=== PATIENT | female | born 1985 | race Caucasian/White ===

== ENCOUNTER 2018-06-12 16:22 | Emergency (ER) | payer OTHER ==
[2018-06-12 16:37] VITALS: BP 114/67
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
== END 2018-06-12 17:59 | disposition home or self-care (01) ==
LOC: ER 16:22
DX: S16.1XXA Strain of muscle, fascia and tendon at neck level, initial encounter (principal); R51 Headache; M54.2 Cervicalgia; V49.40XA Driver injured in collision with unspecified motor vehicles in traffic accident, initial encounter; M62.838 Other muscle spasm; M62.830 Muscle spasm of back; Z91.013 Allergy to seafood
CPT/HCPCS: 99283

== ENCOUNTER 2020-02-13 10:10 | Observation (INO) | payer OTHER ==
[~2020-02-13 10:10] MED LIST: GLYCOPYRROLATE 1 MG/5 ML VIAL ONE; NEOSTIGMINE METHYLSULFATE 10 MG/10 ML VIAL ONE; SUCCINYLCHOLINE CHLORIDE INJ 200 MG/10 ML VIAL ONE; VECURONIUM BROMIDE INJ 10 MG VIAL IV ONE
[2020-02-13] MEDS ORDERED: NORMAL SALINE 1000 ML 1,000 ML IV ONE (10:29)
--- NOTE | 2020-02-13 10:31 | ER Document Report ---
ED Medical Screen (RME) - General Chief Complaint: Abdominal Pain Stated Complaint: ABDOMINAL PAIN Time Seen by Provider: 02/13/20 10:24 Primary Care Provider: ANANYA JOSUE MD [Primary Care Provider] - Follow up as needed Mode of Arrival: Ambulatory Information source: Patient Notes: Patient presents complaining of abdominal pain that started yesterday evening. Patient states tenderness initially started to the periumbilical area and then migrated to the right lower quadrant. Patient reports nausea without any vomiting or diarrhea. Patient denies any fever or urinary symptoms. Patient denies any vaginal bleeding or discharge. I have greeted and performed a rapid initial assessment of this patient. A comprehensive ED assessment and evaluation of the patient, analysis of test results and completion of the medical decision making process will be conducted by additional ED providers. TRAVEL OUTSIDE OF THE [place] IN LAST 30 DAYS: No - Related Data Allergies/Adverse Reactions: Shellfish * [Shellfish] Allergy (Severe, Verified 10/20/15 19:45) Past Medical History Renal/ Medical History: Denies: Hx Peritoneal Dialysis Past Surgical History: Reports: Hx Section - Immunizations Hx Diphtheria, Pertussis, Tetanus Vaccination: Yes Physical Exam - Vital signs Vitals: Temp Pulse Resp BP Pulse Ox 98.9 F 112 H 18 105/63 100 02/13/20 10:02/13/20 10:02/13/20 10:02/13/20 10:02/13/20 10:23 - General General appearance: Alert In distress: Mild Notes: Tachycardic, tenderness to right lower quadrant, exam limited by patient evaluation in chair Course - Vital Signs Vital signs: Temp Pulse Resp BP Pulse Ox 98.9 F 112 H 18 105/63 100 02/13/20 10:23 02/13/20 10:02/13/20 10:02/13/20 10:02/13/20 10:23 Doctor's Discharge - Discharge Referrals: ANANYA JOSUE MD [Primary Care Provider] - Follow up as needed
[2020-02-13 11:09] LABS: ABSOLUTE EOSINOPHILS # (AUTO) 0.1 10^3/uL (0.0-0.6); ABSOLUTE LYMPHOCYTES (AUTO) 1.4 10^3/uL (0.5-4.7); ABSOLUTE MONOCYTES (AUTO) 0.8 10^3/uL (0.1-1.4); ABSOLUTE NEUT (AUTO) 11.8 10^3/uL (1.7-8.2); BASOPHILS % (AUTO) 0.2 % (0-2); EOSINOPHILS % (AUTO) 0.4 % (0-6); HEMATOCRIT 39.5 % (36.0-47.0); HEMOGLOBIN 13.4 g/dL (12.0-15.5); LYMPHOCYTES % (AUTO) 10.1 % (13-45); MEAN CORPUSCULAR HEMOGLOBIN 29.5 pg (27.0-33.4); MEAN CORPUSCULAR HGB CONC 33.8 g/dL (32.0-36.0); MEAN CORPUSCULAR VOLUME 87 fl (80-97); MONOCYTES % (AUTO) 5.9 % (3-13); PLATELET COUNT 216 10^3/uL (150-450); RED BLOOD COUNT 4.52 10^6/uL (3.72-5.28); RED CELL DISTRIBUTION WIDTH 14.3 % (11.5-14.0); SEGMENTED NEUTROPHILS % (AUTO) 83.4 % (42-78); TOTAL CELLS COUNTED % (AUTO) 100 %; WHITE BLOOD COUNT 14.1 10^3/uL (4.0-10.5)
[2020-02-13 11:23] LABS: APPEARANCE,URINE SLIGHTLY-CLOUDY; BILIRUBIN,URINE NEGATIVE (NEGATIVE); COLOR,URINE YELLOW; GLUCOSE, URINE NEGATIVE (NEGATIVE); KETONES,URINE NEGATIVE (NEGATIVE); LEUKOCYTE ESTERASE,URINE NEGATIVE (NEGATIVE); NITRITE,URINE NEGATIVE (NEGATIVE); PROTEIN,URINE NEGATIVE (NEGATIVE); URINE SPECIFIC GRAVITY 1.014; UROBILINOGEN,URINE NEGATIVE mg/dL (<2.0)
[2020-02-13 11:31] LABS: ALBUMIN 4.2 g/dL (3.5-5.0); ALKALINE PHOSPHATASE 50 U/L (38-126); ANION GAP 7 (5-19); ASPARTATE AMINO TRANSFERASE 20 U/L (14-36); BILIRUBIN,TOTAL 0.7 mg/dL (0.2-1.3); BLOOD UREA NITROGEN 14 mg/dL (7-20); CARBON DIOXIDE 26 mmol/L (22-30); CHLORIDE 103 mmol/L (98-107); GLUCOSE 103 mg/dL (75-110); POTASSIUM 3.9 mmol/L (3.6-5.0); TOTAL PROTEIN 7.5 g/dL (6.3-8.2)
--- NOTE | 2020-02-13 11:34 | RADIOLOGY REPORT (SQ) ---
EXAM DESCRIPTION: U/S NON OB PEL TV W/DOPPLER IMAGES COMPLETED DATE/TIME: 02/13/2020 11:18 am REASON FOR STUDY: RLQ pain COMPARISON: None. TECHNIQUE: Dynamic and static grayscale images acquired of the pelvis via transvaginal approach and recorded on PACS. Additional selected color Doppler and spectral images recorded. LIMITATIONS: None. FINDINGS: UTERUS: Contour normal. No mass. ENDOMETRIAL STRIPE: No focal or generalized thickening. No masses. CERVIX: Nabothian cysts. RIGHT OVARY AND DOPPLER: Normal size. No worrisome masses. Normal arterial vascular flow without evid ence for torsion. LEFT OVARY AND DOPPLER: Normal size. No worrisome masses. Normal arterial vascular flow without evide nce for torsion. FREE FLUID: None noted. OTHER: No other significant finding. MEASUREMENTS: UTERUS: 5.2 x 5.7 x 10.1 cm. ENDOMETRIAL STRIPE: 8 mm. RIGHT OVARY: 1.5 x 2.1 x 2.5 cm. LEFT OVARY: 1.8 x 1.8 x 2.7 cm. IMPRESSION: NORMAL TRANSVAGINAL PELVIC ULTRASOUND. TECHNICAL DOCUMENTATION: JOB ID: [id number] [employer]- All Rights Reserved Rev Reading location - IP/workstation name: [email or web address]
[2020-02-13] MEDS ORDERED: ONDANSETRON HCL INJ/PF 4 MG/2 ML SDV IV ONE (12:37)
[2020-02-13] MEDS ORDERED: MORPHINE SULFATE 10 MG/ML INJ IV ONE ×2 (12:37→15:01)
[2020-02-13 12:40] LABS: CHLAM PCR NOT DETECTED (NOT DETECT)
--- NOTE | 2020-02-13 12:51 | RADIOLOGY REPORT (SQ) ---
EXAM DESCRIPTION: CT ABD/PELVIS WITH IV ONLY IMAGES COMPLETED DATE/TIME: 02/13/2020 12:24 pm REASON FOR STUDY: rlq pain COMPARISON: None. TECHNIQUE: CT scan of the abdomen and pelvis performed using helical scanning technique with dynamic intravenous contrast injection. No oral contrast. Images reviewed with lung, soft tissue, and bone windows. Reconstructed coronal and sagittal MPR images reviewed. Delayed images for evaluation of the urinary system also acquired. All images stored on PACS. All CT scanners at this facility use dose modulation, iterative reconstruction, and/or weight based d osing when appropriate to reduce radiation dose to as low as reasonably achievable (ALARA). [facility]: Dose Right [facility]: CareDose [facility]: Dose Right [facility]: Teradose 4D [facility]: TeraFirrma CONTRAST TYPE AND DOSE: contrast/concentration: Isovue 350.00 mmol/ml; Total Contrast Delivered: 88. 0 ml; Total Saline Delivered: 40.6 ml RENAL FUNCTION: BUN 14 creatinine 0.71. RADIATION DOSE: CT Rad equipment meets quality standard of care and radiation dose reduction techniq ues were employed. CTDIvol: 12.0 - 15.9 mGy. DLP: 1544 mGy-cm.. LIMITATIONS: None. FINDINGS: LOWER CHEST: No significant findings. No nodules or infiltrates. LIVER: Normal size. No masses. No dilated ducts. SPLEEN: Normal size. No focal lesions. PANCREAS: No masses. No significant calcifications. No adjacent inflammation or peripancreatic fluid collections. Pancreatic duct not dilated. GALLBLADDER: No identified stones by CT criteria. No inflammatory changes to suggest cholecystitis. ADRENAL GLANDS: No significant masses or asymmetry. RIGHT KIDNEY AND URETER: 1 cm cortical cyst. No solid masses. No significant calcifications. No hydronephrosis or hydroureter. LEFT KIDNEY AND URETER: Parapelvic cysts. No solid masses. No significant calcifications. No hyd ronephrosis or hydroureter. AORTA AND VESSELS: No aneurysm. No dissection. Renal arteries, SMA, celiac without stenosis. RETROPERITONEUM: No retroperitoneal adenopathy, hemorrhage or masses. BOWEL AND PERITONEAL CAVITY: No masses or inflammatory changes. No free fluid or peritoneal masses. APPENDIX: The appendix has transverse diameter 8.0 mm. There is mild thickening of the wall of the a ppendix and slightly indistinct appearance of the serosal surface. Best visualized on coronal series 601, image 24. PELVIS: No mass. No free fluid. Normal bladder. ABDOMINAL WALL: No masses. No hernias. BONES: No significant or acute findings. OTHER: No other significant finding. IMPRESSION: 1. MILD THICKENING OF THE WALL OF THE APPENDIX WITH POSSIBLE MILD INFLAMMATION, SOMEWHAT SUSPICIOUS F OR EARLY ACUTE APPENDICITIS. 2. NO OTHER SIGNIFICANT OR ACUTE FINDING IN THE ABDOMEN OR PELVIS ON CT SCAN WITH IV CONTRAST. INCID ENTAL RENAL CYSTS. TECHNICAL DOCUMENTATION: JOB ID: [id number] Quality ID # [id number]: Final reports with documentation of one or more dose reduction techniques (e.g., Au tomated exposure control, adjustment of the mA and/or kV according to patient size, use of iterative reconstruction technique) 2010 [employer]- All Rights Reserved Reading location - IP/workstation name: [email or web address]
--- NOTE | 2020-02-13 13:47 | ER Document Report ---
ED General - General Chief Complaint: Abdominal Pain Stated Complaint: ABDOMINAL PAIN Time Seen by Provider: 02/13/20 10:24 Primary Care Provider: ANANYA JOSUE MD [Primary Care Provider] - Follow up as needed Mode of Arrival: Ambulatory Information source: Patient TRAVEL OUTSIDE OF THE [place] IN LAST 30 DAYS: No - HPI Notes: Patient presents with right lower quadrant pain. She states it started out as epigastric pain yesterday and migrated down to the right lower quadrant today. She states it now radiates around to the right side. It is moderate to severe. Is constant. Is worse with movement and better with rest. It is a sharp pain. She denies any dysuria urgency or frequency. No vaginal bleeding or discharge. She has some nausea but no vomiting. No diarrhea or fevers. She denies history of similar pain. - Related Data Allergies/Adverse Reactions: Shellfish * [Shellfish] Allergy (Severe, Verified 10/20/15 19:45) Past Medical History - General Information source: Patient - Social History Smoking Status: Never Smoker Frequency of alcohol use: None Drug Abuse: None Family History: Reviewed & Not Pertinent Renal/ Medical History: Denies: Hx Peritoneal Dialysis Past Surgical History: Reports: Hx Section - Immunizations Hx Diphtheria, Pertussis, Tetanus Vaccination: Yes Review of Systems - Review of Systems Constitutional: denies: Chills, Fever Cardiovascular: denies: Chest pain, Palpitations Respiratory: denies: Cough, Short of breath -: Yes All other systems reviewed and negative Physical Exam - Vital signs Vitals: Temp Pulse Resp BP Pulse Ox 98.9 F 112 H 18 105/63 100 02/13/20 10:23 02/13/20 10:23 02/13/20 10:23 02/13/20 10:23 02/13/20 10:23 Interpretation: Tachycardic - General General appearance: Appears well, Alert - HEENT Head: Normocephalic, Atraumatic Eyes: Normal Pupils: PERRL - Respiratory Respiratory status: No respiratory distress Chest status: Nontender Breath sounds: Normal Chest palpation: Normal - Cardiovascular Rhythm: Tachycardia Heart sounds: Normal auscultation Murmur: No - Abdominal Inspection: Normal Distension: No distension Bowel sounds: Normal Tenderness: Tender - Right lower quadrant. No rebound some mild voluntary guarding Organomegaly: No organomegaly - Back Back: Normal, Nontender - Extremities General upper extremity: Normal inspection, Nontender, Normal color, Normal ROM, Normal temperature General lower extremity: Normal inspection, Nontender, Normal color, Normal ROM, Normal temperature, Normal weight bearing. No: Latesha's sign - Neurological Neuro grossly intact: Yes Cognition: Normal Orientation: AAOx4 Phi Coma Scale Eye Opening: Spontaneous Phi Coma Scale Verbal: Oriented [place] Coma Scale Motor: Obeys Commands [place] Coma Scale Total: 15 Speech: Normal Motor strength normal: LUE, RUE, LLE, RLE Sensory: Normal - Psychological Associated symptoms: Normal affect, Normal mood - Skin Skin Temperature: Warm Skin Moisture: Dry Skin Color: Normal Course - Re-evaluation Re-evalutation: 02/13/20 13:46 Patient presents with right lower quadrant abdominal pain. She has an elevated white blood cell count. Exam shows some moderate tenderness to palpation. CT scan shows questionable early appendicitis. The surgeon has been consulted at this time. - Vital Signs Vital signs: Temp Pulse Resp BP Pulse Ox 98.9 F 112 H 18 105/63 100 02/13/20 10:23 02/13/20 10:23 02/13/20 10:23 02/13/20 10:23 02/13/20 10:23 - Laboratory Result Diagrams: 02/13/20 10:33 02/13/20 10:33 Laboratory results interpreted by me: 02/13/20 02/13/20 02/13/20 10:33 10:33 10:33 WBC 14.1 H RDW 14.3 H Lymph % (Auto) 10.1 L Absolute Neuts (auto) 11.8 H Seg Neutrophils % 83.4 H Sodium 135.6 L Urine Blood SMALL H - Diagnostic Test Radiology reviewed: Image reviewed, Reports reviewed Discharge - Discharge Clinical Impression: Acute appendicitis Qualifiers: Acute appendicitis type: with localized peritonitis Appendicitis gangrene presence: without gangrene Appendicitis perforation presence: without perforation Appendicitis abscess presence: without abscess Qualified Code(s): K35.30 - Acute appendicitis with localized peritonitis, without perforation or gangrene Condition: Stable Disposition: ADMITTED INPATIENT Admitting Provider: Surgicalist Unit Admitted: Surgical Floor Referrals: ANANYA JOSUE MD [Primary Care Provider] - Follow up as needed
[2020-02-13] MEDS ORDERED: PIPERACILLIN/TAZOBACTAM 3.375 GM VIAL IV ONE (14:11)
--- NOTE | 2020-02-13 14:13 | PDOC H&P ---
History of Present Illness Admission Date/PCP: ANANYA JOSUE MD Patient complains of: Right lower quadrant pains History of Present Illness: CHINA CAMPBELL is a 34 year old female who suddenly complained of epigastric pains around 1030 last night after dinner. The pains then localized in the right lower quadrant later that night. Went to ED this morning and CT scan showed acute appendicitis. She had some chills but no fever. She had some nausea last night. Past Medical History Hematology: Denies: Anemia Past Surgical History Past Surgical History: Reports: Section Social History Smoking Status: Current Every Day Smoker Family History Family History: Reviewed & Not Pertinent Parental Family History Reviewed: Yes - Father diabetic Children Family History Reviewed: No Sibling(s) Family History Reviewed.: No Medication/Allergy Home Medications: Methocarbamol [Robaxin 500 Mg Tablet] 500 mg PO QID PRN #40 tablet 05/02/14 Oxycodone HCl/Acetaminophen [Percocet 5-325 mg Tablet] 1 - 2 tab PO ASDIR PRN #15 tablet 05/02/14 Ibuprofen [Motrin 800 mg Tablet] 800 mg PO Q8H PRN #30 tab 06/12/18 Methocarbamol [Robaxin 750 mg Tablet] 750 mg PO ASDIR PRN #20 tablet 06/12/18 Allergies/Adverse Reactions: Shellfish * [Shellfish] Allergy (Severe, Verified 10/20/15 19:45) Review of Systems Constitutional: PRESENT: as per HPI Gastrointestinal: PRESENT: abdominal pain, nausea Physical Exam Vital Signs: Temp Pulse Resp BP Pulse Ox 98.9 F 112 H 18 105/63 100 02/13/20 10:23 02/13/20 10:23 02/13/20 10:23 02/13/20 10:23 02/13/20 10:23 Intake & Output 02/12/20 02/13/20 02/14/20 06:59 06:59 06:59 Intake Total 1000 Balance 1000 Weight 77 kg Exam: There is tenderness and rebound in the right lower quadrant. Pulses: PRESENT: normal radial pulses Vascular exam: PRESENT: normal capillary refill GI/Abdominal exam: PRESENT: tenderness - Right lower quadrant Rectal exam: PRESENT: deferred Neurological exam: PRESENT: alert, oriented to person, oriented to place, oriented to time, oriented to situation Psychiatric exam: PRESENT: appropriate affect Skin exam: PRESENT: normal color, warm Results Laboratory Results: 02/13/20 10:33 02/13/20 10:33 02/13/20 02/13/20 02/13/20 10:33 10:33 10:33 WBC 14.1 H RBC 4.52 Hgb 13.4 Hct 39.5 MCV 87 MCH 29.5 MCHC 33.8 RDW 14.3 H Plt Count 216 Seg Neutrophils % 83.4 H Sodium 135.6 L Potassium 3.9 Chloride 103 Carbon Dioxide 26 Anion Gap 7 BUN 14 Creatinine 0.71 Est GFR ( Amer) > 60 Glucose 103 Calcium 9.0 Total Bilirubin 0.7 AST 20 Alkaline Phosphatase 50 Total Protein 7.5 Albumin 4.2 Serum HCG, Qual NEGATIVE Urine Color Urine Appearance Urine pH Ur Specific [place] Urine Protein Urine Glucose (UA) Urine Ketones Urine Blood Urine Nitrite Ur Leukocyte Esterase Urine WBC (Auto) Urine RBC (Auto) 02/13/20 10:33 WBC RBC Hgb Hct MCV MCH MCHC RDW Plt Count Seg Neutrophils % Sodium Potassium Chloride Carbon Dioxide Anion Gap BUN Creatinine Est GFR ( Amer) Glucose Calcium Total Bilirubin AST Alkaline Phosphatase Total Protein Albumin Serum HCG, Qual Urine Color YELLOW Urine Appearance SLIGHTLY-CLOUDY Urine pH 6.0 Ur Specific [place] 1.014 Urine Protein NEGATIVE Urine Glucose (UA) NEGATIVE Urine Ketones NEGATIVE Urine Blood SMALL H Urine Nitrite NEGATIVE Ur Leukocyte Esterase NEGATIVE Urine WBC (Auto) 3 Urine RBC (Auto) 0 Impressions: Transvaginal US 02/13/20 10:30 IMPRESSION: NORMAL TRANSVAGINAL PELVIC ULTRASOUND. Abdomen/Pelvis CT 02/13/20 11:49 IMPRESSION: 1. MILD THICKENING OF THE WALL OF THE APPENDIX WITH POSSIBLE MILD INFLAMMATION, SOMEWHAT SUSPICIOUS FOR EARLY ACUTE APPENDICITIS. 2. NO OTHER SIGNIFICANT OR ACUTE FINDING IN THE ABDOMEN OR PELVIS ON CT SCAN WITH IV CONTRAST. INCIDENTAL RENAL CYSTS. Assessment & Plan - Diagnosis (1) Acute appendicitis Qualifiers: Acute appendicitis type: with localized peritonitis Appendicitis gangrene presence: without gangrene Appendicitis perforation presence: without perforation Appendicitis abscess presence: without abscess Qualified Code(s): K35.30 - Acute appendicitis with localized peritonitis, without perforation or gangrene Is this a current diagnosis for this admission?: Yes - Time Time Spent: 30 to 50 Minutes - Inpatient Certification Medical Necessity: Need For IV Fluids, Need for Pain Control, Need for IV Antibiotics, Need for Surgery - Plan Summary Plan Summary: 33-year-old female with abdominal pain since 1030 last night associated with nausea. CT scan of the abdomen this morning in the ED showed acute appendicitis. Her white count is elevated. Admits to having chills but no fever. Plans: Hydrate IV antibiotics 2 OR after call Covid testing for laparoscopic appendectomy
[2020-02-13] MEDS ORDERED: SUGAMMADEX SODIUM 200 MG/2 ML SDV IV ONE (16:40)
[2020-02-13] MEDS ORDERED: MIDAZOLAM 2 MG/2 ML INJ ONE (16:40)
[2020-02-13] MEDS ORDERED: ONDANSETRON HCL INJ/PF 4 MG/2 ML SDV ONE (16:40)
[2020-02-13] MEDS ORDERED: FENTANYL CITRATE INJ/PF 100 MCG/2 ML AMPUL ONE (16:40)
[2020-02-13] MEDS ORDERED: PROPOFOL INJ 200 MG/20 ML VIAL IV ONE (16:41)
[2020-02-13] MEDS ORDERED: LIDOCAINE 0.5% INJ-PF (5 MG/ML) 50 ML SDV ONE (16:42)
[2020-02-13] MEDS ORDERED: BUPIVACAINE HCL 0.25 % INJ/PF (2.5 MG/1 ML) 30 ML VIAL ONE (16:45)
[2020-02-13] MEDS ORDERED: DIPHENHYDRAMINE HCL 50 MG/ML VIAL IV PRN (18:05)
[2020-02-13] MEDS ORDERED: MORPHINE SULFATE 10 MG/ML INJ IV PRN (18:05)
[2020-02-13] MEDS ORDERED: FENTANYL CITRATE INJ/PF 100 MCG/2 ML AMPUL IV PRN ×3 (18:05)
[2020-02-13] MEDS ORDERED: MEPERIDINE HCL/PF INJ 25 MG/1 ML DISP.SYRIN IV PRN (18:05)
[2020-02-13] MEDS ORDERED: ONDANSETRON HCL INJ/PF 4 MG/2 ML SDV IV PRN ×2 (18:05→18:30)
[2020-02-13] MEDS ORDERED: PROMETHAZINE HCL INJ 25 MG/1 ML VIAL IV PRN ×2 (18:05)
--- NOTE | 2020-02-13 18:28 | Operative Report ---
Operative Report DATE OF SURGERY: 02/13/20 PREOPERATIVE DIAGNOSIS: Acute appendicitis POSTOPERATIVE DIAGNOSIS: Same OPERATION: Laparoscopic appendectomy SURGEON: DIANA LIANG ANESTHESIA: GA TISSUE REMOVED OR ALTERED: Appendix COMPLICATIONS: None ESTIMATED BLOOD LOSS: 10 cc QUANTITATIVE BLOOD LOSS: 10 INTRAOPERATIVE FINDINGS: Acute appendicitis PROCEDURE: After adequate general anesthesia patient was placed in supine position and the abdomen prepped and draped in the usual sterile fashion. Appropriate timeout was then called. Neck and infraumbilical incision was made fascia identified grabbed with 2 [place] clamps and divided between the 2 Corker clamps. Fascia was then deepened and widened with the use of a hemostat. 2 sutures of 0 Vicryl placed on each side of the fascia and the 2 clamps released. Has finger palpation through the fascia to the abdominal cavity was done and no definite evidence of adhesions underneath. Galeas trocar was then inserted through the fascia to the abdominal cavity and CO2 insufflated. 2 other trochars were placed a 5 mm in the suprapubic and 12 mm in the left lower quadrant under direct vision. The appendix was then identified and grabbed with grasper at the mid part. The mesial appendix was then serially cauterized and divided with the use of harmonic vik. The base of the appendix was clean and free of any inflammation. With the use of Endo EMILE 35mm vascular load base of the appendix close to the cecum was then stapled and divided. Appendix was then placed in an Endobag and pulled out through the umbilical port. Galeas trocar was inserted back and operative site inspected. No evidence of active bleeding noted. This was irrigated with saline solution and no further evidence of active bleeding noted. Pelvic area was inspected and ovaries uterus noted to be normal. All the trochars were then removed and CO2 allowed to come out of the trocar sites. Fascial defect was then closed with [id number] suture using 0 Vicryl and 2 stay sutures were tied for better closure. Local anesthesia infiltrated in the fashion all the skin incision sites. Skin incisions were then closed with running subcuticular closure using 4-0 Vicryl undyed. Steri-Strips placed over the operative sites. Needle instrument sponge count were all correct. Patient was then brought to the recovery room extubated in satisfactory condition.
[2020-02-13] MEDS ORDERED: PIPERACILLIN/TAZOBACTAM 3.375 GM VIAL IV SCH (18:30)
[2020-02-13] MEDS ORDERED: KETOROLAC TROMETHAMINE INJ/PF 30 MG/1 ML SDV ONE (18:36)
[2020-02-13] MEDS ORDERED: ACETAMINOPHEN 1,000 MG/100 ML RTUPB IV ONE (18:36)
[2020-02-13] MEDS ORDERED: PROMETHAZINE HCL INJ 25 MG/1 ML VIAL ONE (18:41)
[2020-02-13] MEDS: MORPHINE SULFATE 10 MG/ML INJ IV PRN (19:57)
[2020-02-13] MEDS: DEXTROSE 5%-LACTATED RINGERS 1,000 ML IV PRN (19:58)
[2020-02-13] MEDS: PIPERACILLIN SODIUM/TAZOBACTAM 3.375 GM in NORMAL SALINE 100 ML IV SCH (21:06)
[2020-02-13] MEDS: KETOROLAC TROMETHAMINE INJ/PF 30 MG/1 ML SDV IV SCH (23:58)
[2020-02-14] MEDS: MORPHINE SULFATE 10 MG/ML INJ IV PRN ×2 (01:28→06:55)
[2020-02-14] MEDS: PIPERACILLIN SODIUM/TAZOBACTAM 3.375 GM in NORMAL SALINE 100 ML IV SCH ×2 (02:23→09:24)
[2020-02-14] MEDS: KETOROLAC TROMETHAMINE INJ/PF 30 MG/1 ML SDV IV SCH ×2 (05:05→11:05)
[2020-02-14] MEDS: DEXTROSE 5%-LACTATED RINGERS 1,000 ML IV PRN (05:06)
[2020-02-14 11:18] VITALS: BP 108/64
--- NOTE | 2020-02-14 11:20 | PDOC DISCHARGE SUMMARY ---
General - Admit/Disc Date/PCP Admission Date/Primary Care Provider: 02/13/20 14:24 ANANYA OJSUE MD Discharge Date: 02/14/20 - Discharge Diagnosis Final Diagnosis: Acute appendicitis - Assessment Summary: Admitted for abdominal pains yesterday with a CAT scan showing acute appendicitis. Patient underwent laparoscopic appendectomy on 02/13/2020. Postoperatively on 02/14/2020 tolerating regular diet and passing flatus. All the incisions are clean and dry. She was then discharged on 02/14/2020 to be followed in the surgical clinic in 2 weeks. Prescription given for Toradol. - Additional Information Resuscitation Status: Full Code Discharge Diet: As Tolerated Discharge Activity: Activity As Tolerated, No Lifting Over 10 Pounds, No Lifting/Push/Pulling, No tub bath Referrals: RICARDO AYALA MD [ACTIVE STAFF] - 02/28/20 8:00 am (Call the office of any qu estions or concerns.) ANANYA JOSUE MD [Primary Care Provider] - Follow up as needed Home Medications: Ibuprofen [Motrin 800 mg Tablet] 800 mg PO Q6HP PRN 02/13/20 Ondansetron [Ondansetron Odt] 8 mg PO Q6HP PRN 02/13/20 Oxycodone HCl/Acetaminophen [Percocet 5-325 mg Tablet] 1 tab PO Q6HP PRN 02/13/20 History of Present Illiness History of Present Illness: CHINA CAMPBELL is a 34 year old female who suddenly complained of epigastric pains around 1030 last night after dinner. The pains then localized in the right lower quadrant later that night. Went to ED this morning and CT scan showed acute appendicitis. She had some chills but no fever. She had some nausea last night. Physical Exam Vital Signs: Temp Pulse Resp BP Pulse Ox 97.4 F 52 L 16 108/64 100 02/14/20 11:14 02/14/20 11:14 02/14/20 11:14 02/14/20 11:14 02/14/20 11:14 Intake & Output 02/13/20 02/14/20 02/15/20 06:59 06:59 06:59 Intake Total 3750 Output Total 155 Balance 3595 Weight 77 kg Results Laboratory Results: WBC 14.1 10^3/uL (4.0-10.5) H 07/21/20 10:33 RBC 4.52 10^6/uL (3.72-5.28) 02/13/20 10:33 Hgb 13.4 g/dL (12.0-15.5) 02/13/20 10:33 Hct 39.5 % (36.0-47.0) 02/13/20 10:33 MCV 87 fl (80-97) 02/13/20 10:33 MCH 29.5 pg (27.0-33.4) 02/13/20 10:33 MCHC 33.8 g/dL (32.0-36.0) 02/13/20 10:33 RDW 14.3 % (11.5-14.0) H 02/13/20 10:33 Plt Count 216 10^3/uL (150-450) 02/13/20 10:33 Lymph % (Auto) 10.1 % (13-45) L 02/13/20 10:33 [place] % (Auto) 5.9 % (3-13) 02/13/20 10:33 Eos % (Auto) 0.4 % (0-6) 02/13/20 10:33 Baso % (Auto) 0.2 % (0-2) 02/13/20 10:33 Absolute Neuts (auto) 11.8 10^3/uL (1.7-8.2) H 02/13/20 10:33 Absolute Lymphs (auto) 1.4 10^3/uL (0.5-4.7) 02/13/20 10:33 Absolute Monos (auto) 0.8 10^3/uL (0.1-1.4) 02/13/20 10:33 Absolute Eos (auto) 0.1 10^3/uL (0.0-0.6) 02/13/20 10:33 Absolute Basos (auto) 0.0 10^3/uL (0.0-0.2) 02/13/20 10:33 Seg Neutrophils % 83.4 % (42-78) H 02/13/20 10:33 Sodium 135.6 mmol/L (137-145) L 02/13/20 10:33 Potassium 3.9 mmol/L (3.6-5.0) 02/13/20 10:33 Chloride 103 mmol/L (98-107) 02/13/20 10:33 Carbon Dioxide 26 mmol/L (22-30) 02/13/20 10:33 Anion Gap 7 (5-19) 02/13/20 10:33 BUN 14 mg/dL (7-20) 02/13/20 10:33 Creatinine 0.71 mg/dL (0.52-1.25) 02/13/20 10:33 Est GFR ( Amer) > 60 (>60) 02/13/20 10:33 Est GFR (MDRD) Non-Af > 60 (>60) 02/13/20 10:33 Glucose 103 mg/dL (75-110) 02/13/20 10:33 Calcium 9.0 mg/dL (8.4-10.2) 02/13/20 10:33 Total Bilirubin 0.7 mg/dL (0.2-1.3) 02/13/20 10:33 Direct Bilirubin 0.0 mg/dL (0.0-0.4) 02/13/20 10:33 Neonat Total Bilirubin Not Reportable 02/13/20 10:33 Neonat Direct Bilirubin Not Reportable 02/13/20 10:33 Neonat Indirect Bili Not Reportable 02/13/20 10:33 AST 20 U/L (14-36) 02/13/20 10:33 ALT 14 U/L (<35) 02/13/20 10:33 Alkaline Phosphatase 50 U/L (38-126) 02/13/20 10:33 Total Protein 7.5 g/dL (6.3-8.2) 02/13/20 10:33 Albumin 4.2 g/dL (3.5-5.0) 02/13/20 10:33 Serum HCG, Qual NEGATIVE (NEGATIVE) 02/13/20 10:33 Urine Color YELLOW 02/13/20 10:33 Urine Appearance SLIGHTLY-CLOUDY 02/13/20 10:33 Urine pH 6.0 (5.0-9.0) 02/13/20 10:33 Ur Specific [place] 1.014 02/13/20 10:33 Urine Protein NEGATIVE mg/dL (NEGATIVE) 02/13/20 10:33 Urine Glucose (UA) NEGATIVE mg/dL (NEGATIVE) 02/13/20 10:33 Urine Ketones NEGATIVE mg/dL (NEGATIVE) 02/13/20 10:33 Urine Blood SMALL (NEGATIVE) H 02/13/20 10:33 Urine Nitrite NEGATIVE (NEGATIVE) 02/13/20 10:33 Urine Bilirubin NEGATIVE (NEGATIVE) 02/13/20 10:33 Urine Urobilinogen NEGATIVE mg/dL (<2.0) 02/13/20 10:33 Ur Leukocyte Esterase NEGATIVE (NEGATIVE) 02/13/20 10:33 Urine WBC (Auto) 3 /HPF 02/13/20 10:33 Urine RBC (Auto) 0 /HPF 02/13/20 10:33 Squamous Epi Cells Auto 6 /HPF 02/13/20 10:33 Urine Mucus (Auto) RARE /LPF 02/13/20 10:33 Urine Ascorbic Acid NEGATIVE (NEGATIVE) 02/13/20 10:33 Chlamydia DNA (PCR) NOT DETECTED (NOT DETECT) 02/13/20 10:33 N.gonorrhoeae DNA (PCR) NOT DETECTED (NOT DETECT) 02/13/20 10:33 SARS-CoV-2 (PCR) NEGATIVE (NEGATIVE) 02/13/20 14:05 Impressions: Transvaginal US 02/13/20 10:30 IMPRESSION: NORMAL TRANSVAGINAL PELVIC ULTRASOUND. Abdomen/Pelvis CT 02/13/20 11:49 IMPRESSION: 1. MILD THICKENING OF THE WALL OF THE APPENDIX WITH POSSIBLE MILD INFLAMMATION, SOMEWHAT SUSPICIOUS FOR EARLY ACUTE APPENDICITIS. 2. NO OTHER SIGNIFICANT OR ACUTE FINDING IN THE ABDOMEN OR PELVIS ON CT SCAN WITH IV CONTRAST. INCIDENTAL RENAL CYSTS.
== END 2020-02-14 12:15 | disposition home or self-care (01) ==
LOC: ER 10:10 → EH 14:24 → 2N 19:25
PROVIDERS: ATTEND Surgery
DX: K35.890 Other acute appendicitis without perforation or gangrene (principal); F17.200 Nicotine dependence, unspecified, uncomplicated; R00.0 Tachycardia, unspecified; Z03.818 Encounter for observation for suspected exposure to other biological agents ruled out
CPT/HCPCS: 44970; 96376; 99285; 96361; 96375; 96365; 36415; 84703; 85025; 87635; 80053; 81001; 87491; 87591; 88304 ×2; 76830; 93976; 74177; 99140; 00840; J2250; J3010; J3490 ×3; J1885 ×2; J2270 ×2; J2710; J2550; J0330; J2405; J7121 ×2; J7050 ×2; J7030; J2704; J2543 ×2; J0131; C9803; 840; G0378

== ENCOUNTER 2020-03-24 22:40 | Emergency (ER) | payer OTHER ==
--- NOTE | 2020-03-25 00:13 | ER Document Report ---
ED Medical Screen (RME) - General Chief Complaint: Abscess Stated Complaint: INSECT BITE Time Seen by Provider: 03/25/20 00:11 Primary Care Provider: ANANYA JOSUE MD [Primary Care Provider] - Follow up as needed Mode of Arrival: Ambulatory Information source: Patient Notes: 34-year-old female presented to ED for complaint of abscess to the left wrist. She states she had a bite on her left wrist on Wednesday she thinks she scratched it and now has a red inflamed area to the left wrist with a red streak going up past her elbow. Patient is alert oriented respirations regular nonlabored speaking in full sentences. She states she did have cold sweats last night she does not know of any fevers. She does smoke 5 cigarettes a day drinks occasionally does not use any illicit drugs. She does have a history of an appendectomy in January and a . I have greeted and performed a rapid initial assessment of this patient. A comprehensive ED assessment and evaluation of the patient, analysis of test results and completion of medical decision making process will be conducted by an additional ED providers. TRAVEL OUTSIDE OF THE [place] IN LAST 30 DAYS: No - Related Data Allergies/Adverse Reactions: Shellfish * [Shellfish] Allergy (Severe, Verified 10/20/15 19:45) Past Medical History - Past Medical History Cardiac Medical History: Denies: Hx Hypertension Pulmonary Medical History: Denies: Hx Asthma, Hx Tuberculosis Neurological Medical History: Denies: Hx Seizures Renal/ Medical History: Denies: Hx Peritoneal Dialysis GI Medical History: Denies: Hx Gastroesophageal Reflux Disease Psychiatric Medical History: Denies: Hx Bipolar Disorder, Hx Depression, Hx Schizophrenia Past Surgical History: Reports: Hx Section - Immunizations Hx Diphtheria, Pertussis, Tetanus Vaccination: Yes Physical Exam - Vital signs Vitals: Temp Pulse Resp BP Pulse Ox 98.1 F 88 16 110/70 99 03/24/20 22:46 03/24/20 22:46 03/24/20 22:46 03/24/20 22:46 03/24/20 22:46 Course - Vital Signs Vital signs: Temp Pulse Resp BP Pulse Ox 98.1 F 88 16 110/70 99 03/24/20 22:46 03/24/20 22:46 03/24/20 22:46 03/24/20 22:46 03/24/20 22:46 Doctor's Discharge - Discharge Referrals: ANANYA JOSUE MD [Primary Care Provider] - Follow up as needed
--- NOTE | 2020-03-25 01:07 | ER Document Report ---
ED Skin Rash/Insect Bite/Abscs - General Chief Complaint: Abscess Stated Complaint: INSECT BITE Time Seen by Provider: 03/25/20 00:11 Primary Care Provider: ANANYA JOSUE MD [Primary Care Provider] - Follow up as needed Mode of Arrival: Ambulatory Notes: ED Medical Screen ([facility]) - General Chief Complaint: Abscess Stated Complaint: INSECT BITE Time Seen by Provider: 03/25/20 00:11 Primary Care Provider: ANANYA JOSUE MD [Primary Care Provider] - Follow up as needed Mode of Arrival: Ambulatory Information source: Patient Notes: 34-year-old female presented to ED for complaint of abscess to the left wrist. She states she had a bite on her left wrist on Wednesday she thinks she scratched it and now has a red inflamed area to the left wrist with a red streak going up past her elbow. Patient is alert oriented respirations regular nonlabored speaking in full sentences. She states she did have cold sweats last night she does not know of any fevers. She does smoke 5 cigarettes a day drinks occasionally does not use any illicit drugs. She does have a history of an appendectomy in January and a . 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 Patient was using some baking soda and some skin cleanser in order to keep the wound sterile however over the past few days it has developed a painful and reddened papule she causes a bump with red streaking over the volar aspect of her forearm to her elbow. She denies any prior history of similar symptoms. She denies any diabetes high blood pressure elicited or illegal drug use or injection. She denies any history of MRSA or TB exposure. She denies any coronavirus exposure. She denies any fever cough or other skin rash. Patient reports her left forearm has some tightness but still maintains her flexion and extension and sensation full capillary refill. No involvement of the hand or volar wrist. TRAVEL OUTSIDE OF THE [place] IN LAST 30 DAYS: No - HPI Patient complains to provider of: Spider bite Onset: Last week Onset/Duration: Sudden, Persistent, Worse Quality of pain: Achy Severity: Moderate Pain Level: 2 Skin Character: Abscess, Erythema, Tenderness, Thickening Skin Temperature: Warm Quality of rash: Painful Identify cause: Yes - Related Data Allergies/Adverse Reactions: Shellfish * [Shellfish] Allergy (Severe, Verified 10/20/15 19:45) Past Medical History - General Information source: Patient - Social History Smoking Status: Current Some Day Smoker Cigarette use (# per day): Yes Chew tobacco use (# tins/day): No Smoking Education Provided: Yes Frequency of alcohol use: None Drug Abuse: None Lives with: Family Family History: Reviewed & Not Pertinent Patient has suicidal ideation: No Patient has homicidal ideation: No - Past Medical History Cardiac Medical History: Denies: Hx Hypertension Pulmonary Medical History: Denies: Hx Asthma, Hx Tuberculosis Neurological Medical History: Denies: Hx Seizures Renal/ Medical History: Denies: Hx Peritoneal Dialysis GI Medical History: Denies: Hx Gastroesophageal Reflux Disease Psychiatric Medical History: Denies: Hx Bipolar Disorder, Hx Depression, Hx Schizophrenia Past Surgical History: Reports: Hx Section - Immunizations Hx Diphtheria, Pertussis, Tetanus Vaccination: Yes Review of Systems - Review of Systems Constitutional: See HPI, Fever EENT: No symptoms reported Cardiovascular: No symptoms reported Respiratory: No symptoms reported Gastrointestinal: No symptoms reported Genitourinary: No symptoms reported Female Genitourinary: No symptoms reported Musculoskeletal: No symptoms reported Skin: See HPI, Other - streaking of left FA volar to ac flexion; 1.5 cm diego pustule to left volar distal FA with surrounding erythema @ 3 cm diego Hematologic/Lymphatic: No symptoms reported Neurological/Psychological: No symptoms reported Physical Exam - Vital signs Vitals: Temp Pulse Resp BP Pulse Ox 98.1 F 88 16 110/70 99 03/24/20 22:46 03/24/20 22:46 03/24/20 22:46 03/24/20 22:46 03/24/20 22:46 Interpretation: Normal - General General appearance: Appears well - HEENT Head: Normocephalic, Atraumatic Eyes: Normal Pupils: PERRL Mouth/Lips: Normal Mucous membranes: Normal Pharynx: Normal Neck: Normal - Respiratory Respiratory status: No respiratory distress Chest status: Nontender Breath sounds: Normal Chest palpation: Normal - Cardiovascular Rhythm: Regular Heart sounds: Normal auscultation Murmur: No - Abdominal Inspection: Normal Distension: No distension Bowel sounds: Normal Tenderness: Nontender Organomegaly: No organomegaly - Rectal Hemorrhoids: Other - deferred - Genitourinary [place] exam: Other - deferred - Back Back: Normal - Extremities General upper extremity: Tender, Edema, Other - streaking volar L FA General lower extremity: Normal inspection - Neurological Neuro grossly intact: Yes Cognition: Normal Orientation: AAOx4 [place] Coma Scale Eye Opening: Spontaneous Phi Coma Scale Verbal: Oriented Phi Coma Scale Motor: Obeys Commands [place] Coma Scale Total: 15 Speech: Normal Motor strength normal: LUE, RUE, LLE, RLE Sensory: Normal - Psychological Associated symptoms: Normal affect - Skin Skin Temperature: Warm Skin Moisture: Dry Skin irregularity: Lesion - streaking of left FA volar to ac flexion; 1.5 cm diego pustule to left volar distal FA with surrounding erythema @ 3 cm diego Course - Vital Signs Vital signs: Temp Pulse Resp BP Pulse Ox 98.1 F 88 16 110/70 99 03/24/20 22:46 03/24/20 22:46 03/24/20 22:46 03/24/20 22:46 03/24/20 22:46 Discharge - Discharge Clinical Impression: Cellulitis of left forearm Spider bite wound Qualifiers: Encounter type: initial encounter Injury intent: accidental or unintentional Qualified Code(s): T63.301A - Toxic effect of unspecified spider venom, accidental (unintentional), initial encounter Condition: Good Disposition: HOME, SELF-CARE Additional Instructions: Gently wash left forearm and spider bite with Hibiclens by applying the cleanser allowing it to dry for around 5 to 10 minutes and then rinsing off with lukewarm to cool water. Pat dry and may apply Bactroban ointment or bacitracin [id number]. Keep wound clean and dry and may need a wound pad like a cotton gauze or tape with Kotex to the affected spider bite area if it decides to begin to drain. Follow-up with personal doctor this week off work as directed avoid attempting to stick a needle or knife into the wound to encourage drainage. If you develop fevers or chills return to ER for reevaluation. Take your medicines as directed. Avoid sunlight if possible while taking medications. Drink plenty of water while taking your sulfa drug. Sunlight might cause a sun induced activation of allergy to the sulfa so try to maintain skin outside of the sun and indoors if possible. Prescriptions: Sulfamethoxazole/Trimethoprim [Bactrim Ds Tablet] 1 tab PO BID #20 tablet Cephalexin Monohydrate [Keflex 500 mg Capsule] 500 mg PO BID 10 Days #20 capsule Forms: Return to Work Referrals: ANANYA JOSUE MD [Primary Care Provider] - Follow up as needed
[2020-03-25] MEDS ORDERED: GENTAMICIN SULFATE INJ 80 MG/2 ML VIAL IM ONE (01:10)
[2020-03-25] MEDS ORDERED: CEFTRIAXONE INJ 1000 MG VIAL IM ONE (01:10)
[2020-03-25] MEDS ORDERED: DEXAMETHASONE SOD PHOS INJ 10 MG/1 ML VIAL IM ONE (01:11)
[2020-03-25] MEDS ORDERED: HYDROCODONE/ACETAMINOPHEN 5-325 MG (6 TAB/ER DISP) PO PRN (01:21)
[2020-03-25 02:07] VITALS: BP 99/55
== END 2020-03-25 02:07 | disposition home or self-care (01) ==
LOC: ER 22:40
DX: T63.301A Toxic effect of unspecified spider venom, accidental (unintentional), initial encounter (principal); L03.114 Cellulitis of left upper limb; L02.414 Cutaneous abscess of left upper limb; F17.210 Nicotine dependence, cigarettes, uncomplicated
CPT/HCPCS: 99284; 96372; J1580; J0696; J1100